=== PATIENT | female | born 1980 | race Caucasian/White ===

== ENCOUNTER → 2017-09-24 | Outpatient (CLI) | payer BC ==
--- NOTE | 2017-09-24 18:58 | US ---
EXAMINATION TYPE: US transvaginal DATE OF EXAM: 09/24/2017 COMPARISON: US CLINICAL HISTORY: N93.8 DUB; For past few months patient stated has light period before normal LMP; u terine fibroids per patient;; C section TECHNIQUE: Transvaginal (TV per order Date of LMP: 09/14/2017 EXAM MEASUREMENTS: Uterus: 9.1 x 6.2 x 4.0 cm Endometrial Stripe: 0.8 cm Right Ovary: 2.9 x 3.1 x 1.8 cm Left Ovary: 3.0 x 2.1 x 2.0 cm 1. Uterus: Anteverted, small Nabothian cyst in Cervix = 0.3 x 0.3 x 0.2cm; couple of uterine fibroi ds seen: lateral mid right myometrium = 1.4 x 1.0 x 1.1cm and upper uterine border midline = 1.5 x 1. 4 x 1.1cm 2. Endometrium: thickness wnl for Day 11 LMP 3. Right Ovary: multifollicular with largest = 1.3 x 1.5 x 0.9cm with peripheral ring of color flow 4. Left Ovary: multiple follicle with largest = 1.2 x 0.9 x 0.8cm 5. Bilateral Adnexa: wnl 6. Posterior cul-de-sac: wnl 7. color flow is seen in bilateral ovary IMPRESSION: Small uterine fibroids as above. No solid adnexal mass or free fluid.
== END | disposition home or self-care (01) ==
LOC: RADUSWWP 16:09
PROVIDERS: ATTEND Obstetrics & Gynecology
DX: D25.9 Leiomyoma of uterus, unspecified (principal)
CPT/HCPCS: 76830

== ENCOUNTER → 2020-04-18 | Outpatient (CLI) | payer BC ==
--- NOTE | 2020-04-18 15:46 | CT ---
EXAMINATION TYPE: CT chest wo/w con DATE OF EXAM: 04/18/2020 COMPARISON: NONE HISTORY: Pleural scarring, patient having no complaints at time of scan. CT DLP: 367.2 mGycm. Automated Exposure Control for Dose Reduction was Utilized. TECHNIQUE: CT scan of the thorax is performed following without and with IV Contrast, patient inject ed with 100ml mL of Isovue 300. FINDINGS: LUNGS: The lungs are grossly clear, there is no concerning parenchymal mass or nodule identified. T here is no pleural effusion or pneumothorax seen. The tracheobronchial tree is patent. No significan t peripheral reticulation or fibrosis. No bronchiectasis. MEDIASTINUM: There are no greater than 1 cm hilar or mediastinal lymph nodes. No cardiomegaly or pe ricardial effusion is seen. OTHER: Mild multilevel spurring in the thoracic spine. IMPRESSION: No significant acute or chronic pulmonary process.
== END | disposition home or self-care (01) ==
LOC: RADCTMAIN 14:58
PROVIDERS: ATTEND Family Medicine
DX: J94.8 Other specified pleural conditions (principal)
CPT/HCPCS: 71270; Q9967

== ENCOUNTER 2022-08-31 05:49 | Day surgery (SDC) | payer BC ==
[2022-08-25 15:17] VITALS: BMI 24.3
--- NOTE | 2022-08-30 17:22 | P.GSHP ---
History of Present Illness H&P Date: 08/30/22 41 yo female in the hospital last month with a pyelonephritis left. SHe was found to have two non obstructing stones in the nfected kidney. She now comes for eswl left. The risks complications and alternatives have been discussed. - Constitutional Constitutional: Denies chills, Denies fever - EENT Eyes: denies blurred vision, denies pain Ears, nose, mouth and throat: Denies headache, Denies sore throat - Cardiovascular Cardiovascular: Denies chest pain, Denies shortness of breath - Respiratory Respiratory: Denies cough, Denies 7 - Gastrointestinal Gastrointestinal: Denies abdominal pain, Denies diarrhea, Denies nausea, Denies vomiting - Genitourinary (Female) Genitourinary: Denies dysuria, Denies hematuria - Genitourinary (Male) Genitourinary: Denies dysuria, Denies hematuria - Musculoskeletal Musculoskeletal: Denies myalgias - Integumentary Integumentary: Denies pruritus, Denies rash - Neurological Neurological: Denies numbness, Denies weakness - Psychiatric Psychiatric: Denies anxiety, Denies depression - Endocrine Endocrine: Denies fatigue, Denies weight change Past Medical History Past Medical History: No Reported History Additional Past Medical History / Comment(s): admission to [facility] July 2022 for kidney stones, UTI/sepsis, hx RENAL CALCULI. UTERINE FIBROIDS. 10/03/13 IP FOR ANEMIA UNKNOWN CAUSE. History of Any Multi-Drug Resistant Organisms: None Reported Past Surgical History: Section Additional Past Surgical History / Comment(s): D&C. Past Anesthesia/Blood Transfusion Reactions: No Reported Reaction Additional Past Anesthesia/Blood Transfusion Reaction / Comment(s): no problems with prior blood transfusion Smoking Status: Former smoker - Past Family History Father Family Medical History: Cancer Additional Family Medical History / Comment(s): lung Mother Family Medical History: Hypertension Medications and Allergies Home Medications Medication Instructions Recorded Confirmed Type Sertraline [Zoloft] 100 mg PO BID 07/20/15 08/25/22 History Vitamin B-12 Unk Dose 1 dose PO DAILY 08/25/22 History Vitamin C Unk Dose 1 dose PO DAILY 08/25/22 History Vitamin D3 Unk Dose 1 dose PO DAILY 08/25/22 History Allergies Allergy/AdvReac Type Severity Reaction Status Date / Time No Known Allergies Allergy Verified 07/22/22 10:03 Results - Imaging CT scan - abdomen: report reviewed, image reviewed CT scan - pelvis: report reviewed, image reviewed Assessment and Plan Assessment: Impression: Left renal stone, History of pyelonephritis. Plan: Eswl left
--- NOTE | 2022-08-31 06:34 | XR ---
EXAMINATION TYPE: XR KUB DATE OF EXAM: 08/31/2022 6:11 AM CLINICAL HISTORY: Left-sided renal calculus. TECHNIQUE: Single supine KUB image of the abdomen obtained. COMPARISON: CT abdomen and pelvis July 22, 2022. FINDINGS: Persistent 11 mm upper pole left renal calculus at L1 level. Overall nonobstructive bowel gas pattern. Slight levoconvex scoliotic curvature redemonstrated. IMPRESSION: As above.
[2022-08-31] MEDS ORDERED: LACTATED RINGERS 1,000 ML IV SCH (06:36)
[2022-08-31 06:48] VITALS: TEMP 98.6
[2022-08-31] MEDS ORDERED: ONDANSETRON 4 MG/2 ML VIAL ONE (06:51)
[2022-08-31] MEDS ORDERED: LIDOCAINE 1% (10MG/ML) FOR IV START INTRADERMA ONE (07:00)
[2022-08-31] MEDS ORDERED: DEXAMETHASONE SOD PHOSPHATE 4 MG/ML 1 ML VIAL IVP ONE (07:02)
[2022-08-31] MEDS ORDERED: ONDANSETRON 4 MG/2 ML VIAL IVP ONE (07:02)
[2022-08-31] MEDS ORDERED: fentaNYL (PF) 50 MCG/ML 2 ML AMP ONE (07:18)
[2022-08-31] MEDS ORDERED: PROPOFOL 10 MG/ML 20 ML VIAL IV ONE (07:18)
[2022-08-31] MEDS ORDERED: GLYCOPYRROLATE 0.2 MG/ML 2 ML VIAL ONE (07:18)
[2022-08-31] MEDS ORDERED: MIDAZOLAM 2 MG/2 ML VIAL ONE (07:18)
[2022-08-31] MEDS ORDERED: SODIUM CHLORIDE 0.9% 100 ML with ceFAZolin 2,000 MG IV ONE ×2 (07:38)
--- NOTE | 2022-08-31 07:58 | P.OP ---
Date of Procedure: 08/31/22 Preoperative Diagnosis: Left renal stone Postoperative Diagnosis: Same Procedure(s) Performed: Extracorporeal shockwave lithotripsy, 2500 shocks at energy level IV Anesthesia: MAC Surgeon: Atilio Crabtree Pathology: none sent Condition: stable Disposition: PACU Indications for Procedure: The patient is 41. She was in the hospital pyelonephritis left. She was found to have millimeters left renal stone. She comes for shockwave lithotripsy. She's been on antibiotics given culture specific antibiotics. Description of Procedure: Patient brought to the operating suite. She's placed on the lithotripsy table in supine position. Stone was seen in 2 views of fluoroscopy. With the compact delta 2 Dornier lithotripter total of 2500 shocks at energy level IV stone fractures nicely. Then the procedure the patient was awakened and returned recovery room in good condition. She'll be discharged home upon recovery and follow-up in office in one week with a KUB.
[2022-08-31 08:19] VITALS: RESP 16
[2022-08-31] MEDS ORDERED: ceFAZolin 1,000 MG VIAL ONE (08:30)
[2022-08-31] MEDS ORDERED: HYDROcodone/APAP 5-325MG 1 EACH TAB ONE (08:30)
[2022-08-31] MEDS ORDERED: SODIUM CHLORIDE 0.9% 100 ML BAG ONE (08:30)
[2022-08-31 09:06] VITALS: BP 103/67; PULSE 96
== END 2022-08-31 09:26 | disposition home or self-care (01) ==
LOC: ORWHC2ENDO 05:49
PROVIDERS: ATTEND Urology
DX: N20.0 Calculus of kidney (principal); N12 Tubulo-interstitial nephritis, not specified as acute or chronic; A41.9 Sepsis, unspecified organism; Z87.440 Personal history of urinary (tract) infections; D64.9 Anemia, unspecified; Z87.891 Personal history of nicotine dependence; Z80.1 Family history of malignant neoplasm of trachea, bronchus and lung; Z82.49 Family history of ischemic heart disease and other diseases of the circulatory system; Z79.899 Other long term (current) drug therapy
CPT/HCPCS: 81025; 82365; 74018; 50590; J2250; J1100; J2405; J0690; J3010; J2704

== ENCOUNTER → 2022-09-07 | Outpatient (CLI) | payer BC ==
--- NOTE | 2022-09-07 07:45 | XR ---
EXAMINATION TYPE: XR KUB DATE OF EXAM: 09/07/2022 7:36 AM CLINICAL HISTORY: Renal calculi. TECHNIQUE: Single supine KUB image of the abdomen is obtained. COMPARISON: Abdominal x-ray one week ago. FINDINGS: Prior dominant 11 mm calculus upper pole left kidney L1 level now is not clearly seen. No n ew calcific fragments along the expected course of the left ureter identified. Mild/moderate overlying colonic fecal material noted making evaluation slightly suboptimal. Overall n onobstructive bowel gas pattern. Osseous structures are intact. IMPRESSION: As above. Successful interval treatment of left renal calculus is felt present.
== END | disposition home or self-care (01) ==
LOC: RADXRMAIN 07:25
PROVIDERS: ATTEND Urology
DX: N20.0 Calculus of kidney (principal)
CPT/HCPCS: 74018

== ENCOUNTER → 2023-10-01 | Outpatient (CLI) | payer BC ==
--- NOTE | 2023-10-04 12:49 | MM ---
Reason for Exam: Screening (asymptomatic). Patient History: Menarche at age 10. First Full-Term at age 31. Late child-bearing (after 30). Hormonal Contraceptives, starting at age 19 for 6 years. Risk Values: Alea 5 year model risk: 1.2%. NCI Lifetime model risk: 14.3%. Tissue Density: The breasts are heterogeneously dense, which may obscure small masses. Findings: Analyzed By CAD. Focal asymmetries seen within the bilateral breasts at middle depth in the left breast at and lateral view 6.3 cm the nipple and 6.8 cm nipple and in the right breast on MLO view 4.7 cm nipple measuring 7 mm another and MLO view 4.5 cm from nipple measuring 6 cm. Overall Assessment: Incomplete: need additional imaging evaluation, BI-RAD 0 Management: Diagnostic Mammogram of both breasts. Diagnostic Breast Ultrasound of both breasts. [facility] will attempt to contact patient to return for supplemental views and ultrasound if indicated. Patient should continue monthly self-breast exams. A clinical breast exam by your physician is recommended on an annual basis. This exam should not preclude additional follow-up of suspicious palpable abnormalities. Note on Alea scores and lifetime risk: 1. A Alea score greater than 3% is considered moderate risk. If this is the case, consider specialist referral to assess eligibility for a risk reducing agent. 2. If overall lifetime risk for the development of breast cancer is 20% or higher, the patient may qualify for future screening with alternating mammogram and breast MRI. Electronically signed and approved by: Marvin Rabago DO
== END | disposition home or self-care (01) ==
LOC: RADMAMWWP 09:54
PROVIDERS: ATTEND Family Medicine
DX: Z12.31 Encounter for screening mammogram for malignant neoplasm of breast (principal)
CPT/HCPCS: 77067

== ENCOUNTER → 2023-10-06 | Outpatient (CLI) | payer BC ==
--- NOTE | 2023-10-06 10:13 | MM ---
Reason for Exam: Additional evaluation requested from abnormal screening. Last screening mammogram was performed less than 1 month ago. Patient History: Menarche at age 10. First Full-Term at age 31. Late child-bearing (after 30). Hormonal Contraceptives, starting at age 19 for 6 years. Last menstrual period: 09/28/2023 Risk Values: Alea 5 year model risk: 1.2%. NCI Lifetime model risk: 14.3%. Prior Study Comparison: 10/01/2023 Bilateral MG screening mammo w CAD, [facility]. Tissue Density: The breasts are heterogeneously dense, which may obscure small masses. Findings: Analyzed By CAD. Left breast: On compression 2 areas of increased density identified on the left mediolateral view. Compressive disperse normally. No suspicious distortion is evident. The benign-appearing rounded area is in the upper anterior mid left breast on the mediolateral oblique view. Short-term follow-up can be performed. Right breast: 2 circumscribed rounded areas are within the right breast. At the 3:00 position a 1.0 cm rounded density is 5 cm from the nipple. At the 9:00 position a 0.6 cm rounded density with circumscribed margins is 5 cm from the nipple. Ultrasound of the right breast is recommended for additional workup. Overall Assessment: Incomplete: need additional imaging evaluation, BI-RAD 0 Management: Diagnostic Breast Ultrasound of the right breast. A negative mammogram report should not preclude additional follow up of suspicious palpable abnormalities. Patient should continue monthly self breast exam. A clinical breast exam by your physician is recommended on an annual basis and results should be correlated with mammographic findings. Note on Alea scores and lifetime risk: 1. A Alea score greater than 3% is considered moderate risk. If this is the case, consider specialist referral to assess eligibility for a risk reducing agent. 2. If overall lifetime risk for the development of breast cancer is 20% or higher, the patient may qualify for future screening with alternating mammogram and breast MRI. Electronically signed and approved by: Dg Soriano D.O. Radiologis
--- NOTE | 2023-10-06 11:08 | USB ---
Reason for Exam: Additional evaluation requested from abnormal screening. Patient History: Menarche at age 10. First Full-Term at age 31. Late child-bearing (after 30). Hormonal Contraceptives, starting at age 19 for 6 years. Risk Values: Alea 5 year model risk: 1.2%. NCI Lifetime model risk: 14.3%. Technique: Method: Whole Breast Handheld. Prior Study Comparison: 10/01/2023 Bilateral MG screening mammo w CAD, [facility]. Findings: The whole breast of the right breast, the axilla of the right breast and the retroareolar of the right breast were scanned. Within the right breast there is a 1.1 x 0.7 cm cyst at the 1:00 position 5 cm nipple. This correlates dates with the mammogram. There is an additional 0.8 x 0.5 x 0.8 cm cyst 8:00 position correlating with the mammogram.. There is a small 0.4 x 0.3 x 0.7 cm cyst at the 11:00 position right breast 5 cm the nipple. Short-term follow-up mammogram bilateral breasts to confirm stability is recommended. Overall Assessment: Probably benign, BI-RAD 3 Management: Diagnostic Mammogram of both breasts in 6 months. A clinical breast exam by your physician is recommended on an annual basis and results should be correlated with mammographic findings. This exam should not preclude additional follow-up of suspicious palpable abnormalities. Results were given to the patient verbally at the time of exam. Electronically signed and approved by: Dg Soriano D.O. Radiologis
== END | disposition home or self-care (01) ==
LOC: RADMAMWWP 09:17
PROVIDERS: ATTEND Family Medicine
DX: N60.01 Solitary cyst of right breast (principal); R92.333 Mammographic heterogeneous density, bilateral breasts
CPT/HCPCS: 77062; 77066

== ENCOUNTER → 2024-11-22 | Outpatient (CLI) | payer BC ==
--- NOTE | 2024-11-22 15:32 | US ---
EXAMINATION TYPE: US pelvis complete transvag DATE OF EXAM: 11/22/2024 COMPARISON: 09/24/2017. CLINICAL INDICATION: Female, 44 years old with history of D25.9 LEIOMYOMA OF U TERUS, UNSPECIFIED; Fibroids TECHNIQUE: Transvaginal (TV) and Transabdominal (TA) . Doppler imaging: Not performed. FINDINGS: EXAM MEASUREMENTS: Uterus: 9.2 x 5.7 x 5.3 cm Endometrial Stripe: 1.2 cm Right Ovary: 1.6 x 2.2 x 2.2 cm Left Ovary: 3.9 x 2.5 x 2.1 cm 1. Uterus: Retroflexed Multiple fibroids seen right 1.6 x 13 2.6 cm left side 2.7 x 2.0 x 2.8 cm. 2. Endometrium: 3 mm area of fluid seen. 3. Right Ovary: wnl 4. Left Ovary: wnl 5. Bilateral Adnexa: wnl 6. Posterior cul-de-sac: wnl IMPRESSION: 1. No evidence for acute process. 2. Fibroid uterus. 3. Endometrium within normal limits for thickness with trace fluid in endometrium. [facility], , 11/22/2024 3:29 PM
== END | disposition home or self-care (01) ==
LOC: RADUSWWP 14:16
PROVIDERS: ATTEND Family Medicine
DX: D25.9 Leiomyoma of uterus, unspecified (principal)
CPT/HCPCS: 76830; 76856